=== PATIENT | male | born 1955 | race Two or more races ===

== ENCOUNTER 2018-03-26 16:11 | Emergency (ER) | payer OTHER ==
[~2018-03-26] VITALS: Ht 180.3 cm; Wt 99.8 kg
[~2018-03-26 16:11] MED LIST: ASA81 MG PO; CENTRUM SILVER1 EAC2 PO; CILOSTAZOL100 MG PO; CLORAZEPATE D3.75 MG PO; COZAAR50 MG; DICLOFENAC POTA50 MG; DICLOFENAC POTA50 MG PO; FISH OIL500 MG PO; GEMFIBROZIL600 MG PO; KETO10TA2 PO; LIORESAL; MICARDIS80 MG PO; NEURONTIN300 MG PO; NEURONTIN800 MG PO; OMEPRAZOLE40 MG PO; ORPH100T PO; RANITIDINE HCL300 MG PO; TRAMADOL HCL25 GM MC; TRICOR145 MG PO; [UNRECOGNIZED DRUG - OTHER]
== END 2018-03-26 19:07 | disposition home or self-care (01) ==
LOC: ER 16:11
DX: M25.511 Pain in right shoulder (principal); M54.2 Cervicalgia; M54.6 Pain in thoracic spine

== ENCOUNTER 2018-07-16 09:01 | Outpatient (CLI) | payer OTHER | END 2018-07-16 16:40 | disposition home or self-care (01) | LOC: TOM 09:01 | DX: N20.0 Calculus of kidney (principal) ==

== ENCOUNTER 2018-07-25 06:55 | Emergency (ER) | payer OTHER ==
[~2018-07-25] VITALS: Ht 177.8 cm; Wt 98.9 kg
== END 2018-07-25 12:59 | disposition home or self-care (01) ==
LOC: ER 06:55
DX: J22 Unspecified acute lower respiratory infection (principal); J11.1 Influenza due to unidentified influenza virus with other respiratory manifestations

== ENCOUNTER 2019-01-07 15:23 | Emergency (ER) | payer OTHER ==
[~2019-01-07] VITALS: Ht 180.3 cm; Wt 98.9 kg
== END 2019-01-07 17:26 | disposition home or self-care (01) ==
LOC: ER 15:23
DX: M25.512 Pain in left shoulder (principal); R07.89 Other chest pain

== ENCOUNTER 2019-03-18 12:55 | Emergency (ER) | payer OTHER ==
[~2019-03-18] VITALS: Ht 177.8 cm; Wt 98.9 kg
== END 2019-03-18 19:11 | disposition home or self-care (01) ==
LOC: ER 12:55
DX: J06.9 Acute upper respiratory infection, unspecified (principal)

== ENCOUNTER 2019-09-16 11:18 | Emergency (ER) | payer OTHER ==
[~2019-09-16] VITALS: Ht 177.8 cm; Wt 95.3 kg
== END 2019-09-16 16:48 | disposition home or self-care (01) ==
LOC: ER 11:18
DX: S13.8XXA Sprain of joints and ligaments of other parts of neck, initial encounter (principal); M62.838 Other muscle spasm; R51 Headache; X50.1XXA Overexertion from prolonged static or awkward postures, initial encounter; Y93.89 Activity, other specified; Y92.89 Other specified places as the place of occurrence of the external cause; Y99.8 Other external cause status

== ENCOUNTER 2019-12-06 10:52 | Emergency (ER) | payer OTHER ==
[~2019-12-06] VITALS: Ht 177.8 cm; Wt 98.9 kg
== END 2019-12-06 13:54 | disposition home or self-care (01) ==
LOC: ER 10:52
DX: M62.838 Other muscle spasm (principal); M54.5 Low back pain

== ENCOUNTER 2022-11-01 17:39 | Emergency (ER) | payer OTHER ==
[~2022-11-01] VITALS: Ht 177.8 cm; Wt 49.0 kg
== END 2022-11-01 19:56 | disposition home or self-care (01) ==
LOC: ER 17:39
DX: R51.9 Headache, unspecified (principal); I10 Essential (primary) hypertension; J32.0 Chronic maxillary sinusitis

== ENCOUNTER 2022-12-28 07:14 | Outpatient (CLI) | payer OTHER | END 2022-12-28 07:21 | disposition home or self-care (01) | LOC: SONOGRAMA 07:14 | PROVIDERS: ATTEND Urology | DX: N20.0 Calculus of kidney (principal); R31.1 Benign essential microscopic hematuria ==

== ENCOUNTER 2025-02-25 08:56 | Emergency (ER) | payer OTHER ==
[~2025-02-25] VITALS: Ht 177.8 cm; Wt 97.1 kg
[2025-02-25 10:52] LABS: BASO % 0.6 % (0.1-1.2); EOS # 0.33 (0.04-0.54); HEMATOCRIT 45.4 % (40.1-51.0); HEMOGLOBIN 15.8 g/dL (13.7-17.5); LYMPH # 2.01 (1.18-3.74); LYMPH % 30.4 % (19.3-53.1); MEAN CORPUSCULAR HEMOGLOBIN 30.8 pg (25.6-32.2); MONO # 0.38 (0.24-0.82); MONO % 5.7 % (4.7-12.5); NEUT # 3.85 (1.56-6.13); NEUT % 58.1 % (34.0-71.1); PLATELET COUNT 185 K/uL (163-369); RED BLOOD COUNT 5.13 M/uL (4.63-6.08); RED CELL DISTRIBUTION WIDTH 12.6 % (11.6-14.4)
[2025-02-25 11:20] LABS: ALBUMIN 3.9 gm/dL (3.4-5.0); BILIRUBIN TOTAL 0.44 mg/dL (0.3-1.2); CALCIUM 9.6 mg/dL (8.5-10.1); CREATININE SERUM 0.97 mg/dL (0.70-1.30); GFR 76.51; GLOBULINA 3.7 G/DL (2.4-3.5); POTASSIUM 4.12 mEq/L (3.5-5.1); TOTAL PROTEIN 7.6 gm/dL (6.4-8.2)
[2025-02-25 11:23] LABS: PH,URINE 6.5 (5.0-8.0); URINE APPEARANCE Clear; URINE BILIRRUBIN Negative (NEGATIVE); URINE BLOOD Negative; URINE COLOR Yellow; URINE GLUCOSE Negative (NEGATIVE); URINE KETONE Negative (NEGATIVE); URINE LEUKOCYTE Small; URINE NITRATE Negative; URINE PROTEIN Negative (NEGATIVE)
[2025-02-25 11:28] LABS: URINE BACTERIA 106.4 uL (0.0-1933); URINE EPITHELIAL CELLS 6.4 uL (0.0-38.8); URINE RBC 10.6 uL (0.0-20.8); URINE WBC 38.1 uL (0.0-23.2)
[2025-02-25 11:53] LABS: URINE CAST 0.58 uL (0.0-1.40)
== END 2025-02-25 14:33 | disposition home or self-care (01) ==
LOC: ER 09:00
PROVIDERS: Emergency Medicine
DX: K80.20 Calculus of gallbladder without cholecystitis without obstruction (principal); R10.9 Unspecified abdominal pain; M54.50 Low back pain, unspecified; I10 Essential (primary) hypertension
CPT/HCPCS: 36415; 74177; 99284; Q9965

== ENCOUNTER 2025-09-06 09:37 | Emergency (ER) | payer OTHER ==
[~2025-09-06] VITALS: Ht 177.8 cm; Wt 973.9 kg
[2025-09-06] MEDS ORDERED: LOSARTAN POTASS50 MG PO (10:03)
[2025-09-06] MEDS ORDERED: ECOTRIN81 MG PO (10:03)
[2025-09-06] MEDS ORDERED: TRAMADOL HCL 50 MG TABLET PO ONE (10:45)
[2025-09-06 11:48] LABS: BASO % 0.7 % (0.1-1.2); EOS # 0.41 (0.04-0.54); EOS % 6.9 % (0.7-7.0); LYMPH # 1.58 (1.18-3.74); LYMPH % 26.5 % (19.3-53.1); MEAN PLATELET VOLUME 11.30 fl (9.4-12.4); MONO # 0.45 (0.24-0.82); MONO % 7.5 % (4.7-12.5); NEUT # 3.47 (1.56-6.13); NEUT % 58.1 % (34.0-71.1); RED CELL DISTRIBUTION WIDTH 13.2 % (11.6-14.4)
[2025-09-06 11:56] LABS: INR 0.97
[2025-09-06 12:00] LABS: D DIMER 0.21 MG/L
[2025-09-06 12:06] LABS: ERYTHROCYTE SEDIMENTATION RATE 14 mm/hr (0-20)
[2025-09-06 12:20] LABS: ALT/SGPT 40 U/L (12-78); AST/SGOT 18 U/L (15-37); BILIRUBIN TOTAL 0.60 mg/dL (0.3-1.2); BUN CREA RATIO 16 (7.0-25.0); CREATININE SERUM 0.96 mg/dL (0.70-1.30); GFR 77.43; GLOBULINA 3.8 G/DL (2.4-3.5); GLUCOSE FASTING 106 mg/dL (65-100); OSMOLALITY SERUM 282 MOSM/KG (275-295)
[2025-09-06] MEDS ORDERED: NORFLEX100MG PO (13:38)
[2025-09-06 13:49] VITALS: BP 123/77; O2SAT 97
== END 2025-09-06 13:51 | disposition home or self-care (01) ==
LOC: ER 09:38
PROVIDERS: General Practice
DX: M79.661 Pain in right lower leg (principal); I87.2 Venous insufficiency (chronic) (peripheral); I10 Essential (primary) hypertension